=== PATIENT | female | born 1960 | race Caucasian/White ===

== ENCOUNTER 2021-08-10 11:16 | Emergency (ER) | payer MEDICAID, OTHER ==
[~2021-08-10] VITALS: Ht 147.3 cm; Wt 75.0 kg
[~2021-08-10 11:16] MED LIST: METFORMIN
[2021-08-10] MEDS ORDERED: ACETAMINOPHEN 325MG TABLET PO STA (15:51)
[2021-08-10] MEDS ORDERED: IBUPROFEN 600MG TABLET PO STA (15:51)
[2021-08-10] MEDS ORDERED: SODIUM CHLORIDE 0.9% 500 ML IV ONE (16:00)
[2021-08-10] MEDS ORDERED: CLINDAMYCIN 600 MG in DEXTROSE 5% WATER 50 ML IV ONE (16:00)
[2021-08-10] MEDS ORDERED: CLINDAMYCIN 600MG PREMIX 50 ML IV SCH (16:15)
[2021-08-10 16:26] LABS: BASOPHILS % 0.3 % (0.0-2.0); HEMATOCRIT. 41.4 % (36.0-48.0); HEMOGLOBIN. 13.8 g/dL (12.0-16.0); LYMPHOCYTES % 25.2 % (20.0-50.0); MEAN CORPUSCULAR HEMOGLOBIN 29.9 pg (28.0-32.0); MEAN CORPUSCULAR VOLUME 89.6 fL (81.0-99.0); MEAN PLATELET VOLUME 7.7 fl (7.4-10.4); MONOCYTES % 6.9 % (2.0-8.0); NEUTROPHILS % 66.6 % (40.0-76.0); PLATELET 290 x1000/uL (130-400); RED BLOOD CELL COUNT 4.61 mill/uL (4.2-5.4); RED CELL DISTRIBUTION WIDTH 13.5 % (11.6-14.6)
[2021-08-10 16:27] LABS: CHLORIDE 107 mEq/L (98-107)
[2021-08-10] MEDS ORDERED: CLIN-116 MT (18:39)
[2021-08-10 19:09] VITALS: BP 140/84
== END 2021-08-10 19:10 | disposition home or self-care (01) ==
LOC: ER 11:16
DX: L03.221 Cellulitis of neck (principal); L02.11 Cutaneous abscess of neck; E11.9 Type 2 diabetes mellitus without complications; Z79.84 Long term (current) use of oral hypoglycemic drugs
CPT/HCPCS: 10060; 36415; 80053; 83605; 85025; 87040; 96374; 99284; J3490; J7060